=== PATIENT | female | born 1940 | race American Indian/Alaskan Native ===

== ENCOUNTER 2016-12-06 06:44 | Day surgery (SDC) | payer MEDICARE ==
[2016-12-06] MEDS ORDERED: Lactated Ringer's 1,000 ML IV ONE (07:25)
[2016-12-06 07:28] VITALS: BMI 32.5
[2016-12-06] MEDS ORDERED: Morphine 1 mg/ml preservative-free Inj(Duramorph) ONE ×2 (07:41→08:48)
[2016-12-06] MEDS ORDERED: Bupivacaine 0.5% Inj(30mL) ONE (07:42)
[2016-12-06] MEDS ORDERED: MethylPREDNISolone Depo 40 mg/ml Inj ONE (07:42)
[2016-12-06] MEDS ORDERED: Bacitracin Ointment 30 GM TUBE ONE (07:42)
[2016-12-06] MEDS ORDERED: Propofol 10 mg/ml Inj (20 ML) ONE (07:56)
[2016-12-06] MEDS ORDERED: Lidocaine 1% Inj (20ml) ONE (08:14)
[2016-12-06] MEDS ORDERED: ePHEDrine 50 mg/ml Inj ONE (08:21)
[2016-12-06] MEDS ORDERED: Lidocaine 1% Inj (20ml) IJ ONE (08:45)
[2016-12-06] MEDS ORDERED: methylPREDNISolone Depo 80 mg/ml Inj IM ONE ×2 (09:00→09:20)
[2016-12-06] MEDS ORDERED: Bupivacaine 0.5% 50 ML IJ ONE ×2 (09:01→09:20)
[2016-12-06] MEDS ORDERED: HYDROmorphone 0.5 mg/0.5 ml ISec IVP PRN (09:37)
[2016-12-06 12:06] VITALS: RESP 18
[2016-12-06 13:50] VITALS: BP 126/89; PULSE 85; TEMP 97.5; O2SAT 99
--- NOTE | 2016-12-06 15:46 | PCM.SURG1 ---
Surgeon's Initial Post Op Note - Surgeon's Notes Surgeon: Diane Front Clerk: ANDRES Hood Type of Anesthesia: General Endo Anesthesia Administered By: Dr immanuel Pate Pre-Operative Diagnosis: Primary O/A R knee. tearmedial meniscus/tear lateral meniscus/chondral eburnation medial femoral condyle. tricompartmental synovitis Operative Findings: as above Post-Operative Diagnosis: as above Operation Performed: arthroscopic [id number] medial femoral condyle R knee. arthroscopic partial medial/lateral meniscectomy. arthreoscopic partial tricompartmental synovectomy. intraarticular injection Specimen/Specimens Removed: synovium/caertilage/bone Estimated Blood Loss: EBL {In ML}: 10 Blood Products Given: N/A Drains Used: No Drains Post-Op Condition: Good Date of Surgery/Procedure: 12/06/16 Time of Surgery/Procedure: 08:45 (time in room/anaesthesia indcution time 0800`)
--- NOTE | 2016-12-06 23:57 | OP ---
PROCEDURE DATE: 12/06/2016 PREOPERATIVE DIAGNOSES: 1. Tricompartmental osteoarthritis of the left knee. 2. Tear of medial meniscus, tear lateral meniscus. 3. Tricompartmental synovitis. 4. Chondral damage with eburnation of the medial femoral condyle. PROCEDURES: 1. Surgical arthroscopy, microfracture, medial femoral condyle. 2. Surgical arthroscopy, partial tricompartmental synovectomy. 3. Surgical arthroscopy, partial medial meniscectomy, partial lateral meniscectomy. 4. Intraarticular injection. SURGEON: Isauro Contreras MD. JITTERBUG OPERATOR: Jaquelin Vargas. ANESTHESIA: General endotracheal anesthesia; Dr. Pate. COMPLICATIONS: None. DRAINS: None. OPERATIVE INDICATION: The patient is a 76-year-old woman with tricompartmental osteoarthritis, most severe medially with eburnation and denudation of the articular cartilage of the medial femoral condy le. The patient presents with positive MRI refractory to conservative approach consisting of anti-in flammatory medication, intraarticular injection, and therapy, and weight loss. Pros, cons, risks, an d benefits of surgical approach were discussed. The possibility of mechanical failure, infection, th romboembolic disease, secondary surgery is discussed. The possibility of later replacement arthropla sty was discussed at length. The patient refuses replacement arthroplasty at this point in time, wis jose the arthroscopic procedure. OPERATIVE PROCEDURE: After having obtained informed consent, after having identified side, site, and procedure, a critical pause/timeout, after the satisfactory induction of the anesthetic by Dr. Pate, the patient identified as the patient, in the supine position with all bony prominences well padded, the left lower extremity was prepped and free draped in the usual fashion for lower extremity surgery . The tourniquet had been applied, but is not yet inflated. After exsanguinating the limb using a 6 -inch Esmarch bandage, the tourniquet which had been applied is inflated to 350 mmHg. The joint is i nsufflated with 10 mL of 1% lidocaine without epinephrine. Using a #11 blade, followed by spreading, followed by introduction of blunt trocar, the arthroscope was introduced. With the arthroscope ante rolaterally, evaluation of the joint reveals evidence of tricompartmental synovitis in a tricompartme ntal osteoarthritic change with eburnation and denudation of the medial femoral condyle. Pros, cons, risks and benefits of surgical approach are discussed, had been discussed. Triangulation is accompl ished using #18 gauge spinal needle, followed by #11 blade, followed by spreading, followed by introd uction of blunt trocar. With the arthroscope anterolaterally, a careful partial tricompartmental syn ovectomy is accomplished, both to improve visualization and to ablate irritative tissue. With the ar throscope anterolaterally, a careful partial tricompartmental synovectomy is completed, both to impro ve visualization and to ablate irritative tissue. Bleeding points were controlled with the Staci s urface wand. With the arthroscope anterolaterally, with the surgeon exerting a gentle valgus stress, the medial compartment was exposed to advantage. There is found to be evidence of a tear of the me dial meniscus and evidence of chondral damage down to eburnated bone. This having been accomplished, with the arthroscope anterolaterally, a partial medial meniscectomy is accomplished using a combinat ion of the left biting basket forceps and the upbiting basket forceps. The arthroscope was transferr ed anteromedially and using the straight biting basket forceps and the side-biting basket forceps par tial medial meniscectomy was completed. The inner free edge is smoothed using the Staci SERFAS wan d. The anterior cruciate ligament is found to be intact. With the arthroscope anterolaterally there is found to be a tear of the inner free edge of the lateral meniscus. Using a combination of straig ht biting basket forceps and the side-biting basket forceps, a partial lateral meniscectomy was accom plished. The inner free edge is smoothed using the Staci SERFAS. Attention is now turned to the m edial femoral condyle. There is complete eburnation of bone. With the arthroscope anterolaterally, using the arthroscopic pick, a microfracture is accomplished using the arthroscopic pick in a honeyco mb-type pattern to allow efflux of blood. This having been accomplished tricompartmental synovectomy is completed. Bleeding points controlled with the Tyler SERFAS wand. Microfracture having been completed, using the MicroPick in a honeycom b-type fashion in the medial femoral condyle. Wound is thoroughly irrigated. The inner free edge of the medial and lateral menisci are smoothed using the Tyler SERFAS wand. Portals are closed with interrupted Vicryl and nylon. Intraarticular injection is offered. Kyler Harris compression dressi ng and knee immobilizer are applied. Isauro Contreras MD cc: [id number] TT: 12/06/2016 23:56:12 dn
== END 2016-12-06 14:15 | disposition home or self-care (01) ==
LOC: H.OPSURG 06:44
PROVIDERS: ATTEND Orthopaedic Surgery
DX: S83.201A Bucket-handle tear of unspecified meniscus, current injury, left knee, initial encounter (principal); X58.XXXA Exposure to other specified factors, initial encounter; E11.9 Type 2 diabetes mellitus without complications; E78.5 Hyperlipidemia, unspecified; I10 Essential (primary) hypertension; M47.12 Other spondylosis with myelopathy, cervical region
CPT/HCPCS: 29876; 29879; 29880; 88307; 97116; 97161; G8978; G8979; G8980; J0171; J0690; J1030; J1040; J2001; J2270; J2405; J2704; J2765; J3010; J7030; J7120